=== PATIENT | male | born 1985 | race Caucasian/White ===

== ENCOUNTER → 2018-04-20 13:45 | Outpatient (CLI) | payer MEDICAID, SELFPAY ==
--- NOTE | 2018-04-20 13:47 | XR_ITS ---
XR wrist LT w scaphoid with navicular view HISTORY ITS.REASON: Left wrist pain ORDERING PHYSICIAN: MYAH Cornejo PATIENT AGE: 32 years Comparison: None FINDINGS: No fracture or dislocation. No lytic or blastic change. There is normal mineralization.. The joint spaces are well-preserved. No significant degenerative/arthritic changes. No erosive changes evident.. IMPRESSION: Negative wrist
== END ==
PROVIDERS: PCP Physician Assistant; Visit Provider Physician Assistant
DX: M25.532 Pain in left wrist (principal)
CPT/HCPCS: 73110

== ENCOUNTER → 2018-07-21 09:44 | Outpatient (REF) | payer MEDICAID, SELFPAY ==
[2018-07-21 14:43] LABS: Basophils % 0.6 % (0.1-2.0); Eosinophils # 0.2 K/mm3 (0.0-0.4); Eosinophils % 3.5 % (0.1-12.0); Hematocrit 43.8 % (42.0-52.0); Hemoglobin 14.6 g/dL (14.1-18.0); Lymphocytes # 1.4 K/mm3 (0.7-4.5); Lymphocytes % 22.6 K/mm3 (10-50); Mean Corpuscular HGB Conc 33.3 g/dL (31.8-35.4); Mean Corpuscular Volume 90.2 fl (80-94); Mean Platelet Volume 8.6 fl (7.4-10.4); Monocytes # 0.7 K/mm3 (0.1-1.0); Monocytes % 11.2 % (1.7-9.3); Neutrophils # 3.9 K/mm3 (1.8-7.8); Neutrophils % 62.1 % (37.0-80.0); Platelet Count 281 K/mm3 (142-424); Red Blood Count 4.85 M/mm3 (4.60-6.20); White Blood Count 6.3 K/mm3 (4.8-10.8)
[2018-07-21 15:20] LABS: Alanine Aminotransferase 17 U/L (12-78); Albumin/Globulin Ratio 1.3 (1.1-1.8); Alkaline Phosphatase 70 U/L (46-116); Anion Gap 11.5 mEq/L (5-15); Aspartate Amino Transferase 9 U/L (15-37); Bilirubin,Total 0.8 mg/dL (0.2-1.0); Blood Urea Nitrogen 17 mg/dL (7-18); Calcium 8.9 mg/dL (8.5-10.1); Carbon Dioxide 30 mmol/L (21.0-32.0); Chloride 103 mmol/L (98-107); Chol/HDL Ratio 1.9 (1-3.5); Cholesterol 126 mg/dL (140-200); Estimated Glomerular Filt Rate 87 ml/min (>60); GFR (African American) 105 ML/MIN (>60); Globulin 3.1 gm/dl (1.3-3.2); Glucose 89 mg/dL (74-106); HDL Cholesterol 65 mg/dL (27-67); LDL Cholesterol 54 mg/dL (0-130); Potassium 4.5 mmoL/L (3.5-5.1); Sodium 140 mmol/L (136-145); T4 (Thyroxine) 9.5 ug/dl (4.7-13.3); Thyroid Stimulating Hormone 1.74 uIU/ml (0.358-3.740); Total Protein,Serum 7.1 gm/dL (6.4-8.2); Triglycerides 36 mg/dL (30-200); VLDL Cholesterol 7 mg/dL (0-40)
== END ==
LOC: LAB 09:44
PROVIDERS: Visit Provider Physician Assistant
DX: R35.8 Other polyuria (principal)
CPT/HCPCS: 80053; 80061; 82652; 84436; 84443; 85025

== ENCOUNTER → 2018-08-12 11:43 | Outpatient (CLI) | payer MEDICAID, SELFPAY ==
[2018-08-12 12:52] LABS: Hemoglobin A1C 5.3 % (0.0-7.0)
== END ==
PROVIDERS: PCP Emergency Medicine; Visit Provider Physician Assistant
DX: R35.8 Other polyuria (principal); R35.1 Nocturia; R35.0 Frequency of micturition; Z79.899 Other long term (current) drug therapy
CPT/HCPCS: 36415; 83036

== ENCOUNTER 2018-09-29 14:04 | Outpatient (CLI) | payer MEDICAID, SELFPAY ==
[2018-09-29 15:23] VITALS: BMI 20.7
--- NOTE | 2018-09-29 15:27 | PC.NURSE ---
09/29/18-1527-pt here today for catheter insertion for urinary retention and frequency. Order noted from md to insert a f/c and anchor catheter if residual amount is greater than 300cc. Pt felt need to urinate while here and was able to void per self in the br without difficulty. Explained procedure to the patient and area prepped. Pierce catheter inserted using a standard 16 cook islander and resistance was met, unable to advance catheter all the way to the bladder. Catheter removed and another attempt to catheterize was made using a 16f coude tip. Catheter inserted with little resistance and was able to go through to the bladder. Pierce catheter attatched to drainage bag and allowed to drain at the bs. After approximately 15 min, only 50cc of urine output was noted in the drainage bag. Assisted pt to stand at the bs with the catheter still anchored and no further urine output was noted. Pierce catheter removed at this time, pt valery well. Pt allowed to discharge home at this time. Instructed pt and sister to return to the er or to the pcp office with any further issues and to f/u with urologist on . Urine specimen sent to lab for analysis.
[2018-09-29 15:31] LABS: Microscopic, Urine URINE MICROSCOPIC (MICROSCOPIC)
[2018-09-29 15:34] LABS: Appearance,Urine CLOUDY (Clear); Bilirubin,Urine Negative (Negative); Blood, Urine 3+ (Negative); Color,Urine YELLOW (Yellow); Glucose,Urine (UA) Negative (Negative); Ketones,Urine Negative (Negative); Leukocyte Esterase,Urine Negative (Negative); Nitrate,Urine Negative (Negative); Protein,Urine Negative (Negative); Urobilinogen,Urine 0.2 EU/dl (0.2)
[2018-09-29 15:59] LABS: RBC,Urine 20-50 #/hpf (0-3); Squamous Epithelial Cell,Urine Occasional #/hpf (0-5)
== END 2018-09-29 15:40 | disposition home or self-care (01) ==
LOC: INF 14:06
PROVIDERS: PCP Emergency Medicine; Visit Provider Nurse Practitioner Family
DX: R33.9 Retention of urine, unspecified (principal)
CPT/HCPCS: 81001; G0463

== ENCOUNTER → 2018-10-26 10:40 | Outpatient (CLI) | payer MEDICAID, SELFPAY ==
--- NOTE | 2018-10-26 10:45 | US_ITS ---
US Kidneys complete CLINICAL INDICATION: ITS.REASON: nocturia ORDERING PHYSICIAN: MYAH Cornejo PATIENT AGE: 33 years Comparison: None FINDINGS: The right kidney is 11 x 4 x 8 cm. No hydronephrosis mass or perinephric fluid evident. No cortical thinning. The left kidney is 10 x 4 x 4 cm. No hydronephrosis mass or perinephric fluid evident. The spleen has an unremarkable appearance. Incidental note is multiple heterogeneous liver lesions. These are not well defined. The largest lesion identified is in the right hepatic lobe anteriorly a 2.7 cm. Other lesions are less well defined. Hemangiomas or metastatic disease is a consideration. Recommend CT of the abdomen without and with contrast with hemangioma protocol for further evaluation. IMPRESSION: 1. The kidneys have an unremarkable appearance. 2. Multiple liver lesions which could be due to hemangiomas or metastasis. Suggest CT of the liver without and with contrast with with hemangioma protocol for further evaluation
--- NOTE | 2018-10-26 11:15 | US_ITS ---
US urinary bladder CLINICAL INDICATION: ITS.REASON: Enuresis ORDERING PHYSICIAN: MYAH Cornejo PATIENT AGE: 33 years Comparison: None FINDINGS: The urinary bladder has unremarkable sonographic appearance. Full bladder volume is estimated at 225 mL's. Ureteral jets are noted. No obvious mass. Post void residual is 11 mL's. IMPRESSION: Minimal post void residual urine otherwise negative bladder ultrasound
== END ==
PROVIDERS: PCP Emergency Medicine; Visit Provider Physician Assistant
DX: R35.8 Other polyuria (principal)
CPT/HCPCS: 76770; 76857

== ENCOUNTER → 2018-11-10 09:02 | Outpatient (CLI) | payer MEDICAID, SELFPAY ==
--- NOTE | 2018-11-10 09:03 | CT_ITS ---
CT abdomen pelvis wo/w con CLINICAL INDICATION: Multiple liver lesions, abnormal ultrasound ITS.REASON: multiple liver lesions seen on U/S ORDERING PHYSICIAN: MYAH Cornejo PATIENT AGE: 33 years COMPARISON: 10/26/2018 TECHNIQUE: Axial images obtained without and with contrast. Post enhanced images are obtained at 30 seconds, 60 seconds, and 7 minutes post enhanced. Sagittal and coronal reformats. All CT scans at the facility use one or more dose reduction, viz: automated exposure control, ma/kV adjustment per patient size (including targeted exams where dose is matched to indication, i.e. head), or iterative reconstruction technique. PROCEDURE: Oral Contrast: None IV Contrast: 75 mL of Isovue-370. FINDINGS: Lung bases are clear. There are innumerable varying sized hepatic lesions are hypodense to the liver. These do not demonstrate contrast enhancement that is typical for hemangioma. There is some minimal nodular enhancement on the portal phase images of several of the nodules. The largest conglomeration of lesions is in the left hepatic lobe measuring 9.4 cm transverse and 5.6 cm AP. There are some coarse calcifications noted within several of the nodular lesions. No radiopaque gallstones. The spleen, adrenal glands, pancreas, and kidneys have an unremarkable appearance. No intestinal obstruction or free air. No evidence of appendicitis, diverticulitis, pelvic mass, or abnormal fluid collection in the pelvis. There is a mild amount of retained colonic feces. No acute bony anomalies. IMPRESSION: Multiple varying sized hypoattenuating hepatic lesions some with some minimal nodular enhancement and coarse calcification. These do not have a typical appearance for hemangiomas, hepatic adenomas, or focal nodular hyperplasia. Metastatic disease is the primary consideration. Multiple abscesses are felt to be less likely. Fungal infection is a consideration.
== END ==
PROVIDERS: PCP Physician Assistant; Visit Provider Physician Assistant
DX: K76.9 Liver disease, unspecified (principal)
CPT/HCPCS: 74178; Q9967

== ENCOUNTER → 2018-12-01 15:21 | Outpatient (CLI) | payer MEDICAID, SELFPAY ==
[2018-12-01 16:10] LABS: Basophils # 0.1 K/mm3 (0-0.2); Basophils % 0.6 % (0.1-2.0); Eosinophils # 0.2 K/mm3 (0.0-0.4); Eosinophils % 1.8 % (0.1-12.0); Hematocrit 42.5 % (42.0-52.0); Hemoglobin 14.1 g/dL (14.1-18.0); Lymphocytes # 1.6 K/mm3 (0.7-4.5); Lymphocytes % 20.1 % (10-50); Mean Corpuscular HGB Conc 33.1 g/dL (31.8-35.4); Mean Corpuscular Hemoglobin 30.5 pg (27.0-31.2); Mean Corpuscular Volume 92.4 fl (80-94); Mean Platelet Volume 7.4 fl (7.4-10.4); Monocytes # 0.5 K/mm3 (0.1-1.0); Monocytes % 5.8 % (1.7-9.3); Neutrophils # 5.7 K/mm3 (1.8-7.8); Neutrophils % 71.6 % (37.0-80.0); Platelet Count 315 K/mm3 (142-424); Red Blood Count 4.61 M/mm3 (4.60-6.20); Red Cell Distribution Width 13.1 % (11.5-17.5)
[2018-12-01 16:48] LABS: Alanine Aminotransferase 17 U/L (12-78); Albumin/Globulin Ratio 1.3 (1.1-1.8); Alkaline Phosphatase 84 U/L (46-116); Anion Gap 11.2 mEq/L (5-15); Aspartate Amino Transferase 10 U/L (15-37); Bilirubin,Total 0.6 mg/dL (0.2-1.0); Blood Urea Nitrogen 14 mg/dL (7-18); Calcium 8.5 mg/dL (8.5-10.1); Carbon Dioxide 30 mmol/L (21.0-32.0); Chloride 103 mmol/L (98-107); Creatinine,Serum 0.84 mg/dL (0.70-1.30); Estimated Glomerular Filt Rate 106 ml/min (>60); GFR (African American) 128 ML/MIN (>60); Glucose 96 mg/dL (74-106); HCG,Quantitative 0 mIU/mL; Lactate Dehydrogenase 149 U/L (82-234); Potassium 4.2 mmoL/L (3.5-5.1); Sodium 140 mmol/L (136-145)
[2018-12-03 22:49] LABS: CEA 0.9 ng/mL (0.0-4.7)
== END ==
PROVIDERS: Visit Provider Internal Medicine Medical Oncology
DX: K76.89 Other specified diseases of liver
CPT/HCPCS: 36415; 80053; 82105; 82378; 83615; 84702; 85025

== ENCOUNTER → 2018-12-08 08:23 | Outpatient (CLI) | payer MEDICAID, SELFPAY ==
--- NOTE | 2018-12-08 | US_ITS ---
US biopsy guidance, US liver HISTORY: Multiple hepatic masses ITS.REASON: biopsy liver lesions ORDERING PHYSICIAN: Liz Guaman MD PATIENT AGE: 33 years COMPARISON: 11/10/2018 Prebiopsy ultrasound: Imaging performed of the liver to confirm the presence of the multiple hepatic lesions noted on the CT scan. Biopsy planning was performed. It was decided to biopsy a lesion in the left hepatic lobe being the most accessible and felt to be the safest lesion to biopsy.. TECHNIQUE: Following obtaining informed consent, using aseptic technique and local anesthesia with buffered lidocaine, fine-needle aspiration was performed of the nodule of interest using sonographic guidance. 5 passes were made into the nodule . One pass was made with a 21-gauge needle. The aspirate was bloody. Additional passes were made with a 25-gauge needle which also demonstrated blood. 2 of these passes with a 25-gauge needle was performed without aspiration into the syringe attempting to obtain cells without blood. Pathologist was on site. Core biopsy was not performed due to the hemorrhagic nature of the lesions. The patient tolerated the procedure well without evidence of immediate complications and left the ultrasound suite in stable condition. CYTOLOGY:Nondiagnostic due to predominant bloody specimen IMPRESSION: The lesion biopsied in the left hepatic lobe was very hemorrhagic. Core biopsy was not performed due to the hemorrhagic nature of the lesion. The patient does have a lesion within the mesentery is in the left lower quadrant. This may be attempted to biopsy as well. Fine-needle aspiration first is suggested with pathologist present. If the lesion does not appear to be hemorrhagic as the liver lesions were and if the lesion is readily accessible, a core biopsy may also be performed at that time.
[2018-12-08 08:42] LABS: Activated Partial Thrombo Time 31.7 seconds (23.6-34.0); INR 1.07 (0.9-1.1)
== END ==
PROVIDERS: Visit Provider Internal Medicine Medical Oncology
DX: K76.9 Liver disease, unspecified (principal)
CPT/HCPCS: 47000; 36415; 76705; 76942; 85610; 85730

== ENCOUNTER → 2020-01-25 10:51 | Outpatient (CLI) | payer MEDICAID, SELFPAY ==
--- NOTE | 2020-01-25 10:59 | XR_ITS ---
PROCEDURE: XR WRIST LT W SCAPHOID CLINICAL INDICATION: Left thumb pain Pain COMPARISON: No exams were available for comparison FINDINGS: IMPRESSION: No acute findings. Dictated by: Pelon Gayle MD 01/25/2020 16:02 Electronically signed by Pelon Gayle MD in [place] 01/25/2020 16:02
== END ==
PROVIDERS: PCP Physician Assistant; Visit Provider Physician Assistant
DX: M79.645 Pain in left finger(s) (principal)
CPT/HCPCS: 73110

== ENCOUNTER 2024-02-21 18:49 | Emergency (ER) | payer MEDICAID, SELFPAY ==
[2024-02-21 19:10] VITALS: BP 138/76; PULSE 85; RESP 17; TEMP 36.6; O2SAT 100; BMI 22.8
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
--- NOTE | 2024-02-21 19:12 | PC.NURSE ---
vitals obtained, nurses in report, family informed
--- NOTE | 2024-02-21 19:15 | ED_ITS ---
Discharge Plan Disposition Patient Disposition: Home, Self-Care Condition: Good Prescriptions Prescriptions: No Action desmopressin 0.2 mg tablet See Rx Instructions .ROUTE .COMPLEX Qty: 90 0RF Dose Instruction: TAKE 1 TO 3 TABLETS BY MOUTH ONCE DAILY AT BEDTIME FOR BLADDER Rx Instructions: TAKE 1 TO 3 TABLETS BY MOUTH ONCE DAILY AT BEDTIME FOR BLADDER patient needs to make an appt before anymore refills Referrals Follow up/Referrals: Natasha Palacios PA [Primary Care Provider] - See instructions Activity Restrictions/Add. Instructions Additional Instructions/Restrictions: You were evaluated in the emergency department today. Please follow-up with your primary care provider. Take Tylenol and ibuprofen at home as needed for pain. Clinical Impressions Clinical Impression: Muscle strain of left forearm Instructions Patient Instructions: DI for Acute Pain -- Adult, DI for Arm Pain Discharge ED Provider: Erin Kumar General Adult HPI General Chief complaint: PAIN Stated complaint: AO 02/21/24 1830 Injury left arm Time Seen by Provider: 02/21/24 19:00 History of Present Illness HPI narrative: This patient is a 38-year-old male presenting to the emergency department for evaluation with concern for left forearm injury. Patient reports that he was walking upstairs carrying a drink, when he tripped and fell. He caught himself on his left arm. He did not hit his head or lose consciousness. He complains of pain in his left forearm but no other injuries noted. He was well prior to this. No numbness, tingling, or other concerns. Related Data Previous Rx's Medication Instructions Recorded desmopressin 0.2 mg tablet See Rx Instructions .Route 02/04/24 .COMPLEX #90 tabs Allergies Allergy/AdvReac Type Severity Reaction Status Date / Time No Known Allergies Allergy Verified 04/28/21 14:09 [facility] Disclaimer: The information contained in this section may have been updated after the tarun ent was seen, as this information can be updated by other users. Medical History Allergic rhinitis Pain in wrist Social History Smoking Status: Never smoker alcohol intake: never substance use type: denies use current occupational status: disabled Travel in the last 8 weeks: None ROS Obtained: Yes All systems reviewed & no additional complaints except as documented Physical Exam General General appearance: alert and in no apparent distress Head Head exam: atraumatic and normocephalic Eye Eye exam: Present normal appearance, PERRL and EOMI ENT ENT exam: Present normal exam, normal oropharynx, mucous membranes moist and normal external ear exam Neck Neck exam: Present normal inspection, full ROM and trachea midline; Absent tenderness Chest Chest inspection: Present normal inspection and symmetric chest wall rise; Absent tenderness Respiratory Respiratory exam: Present normal lung sounds bilaterally; Absent respiratory distress, wheezes, stridor or accessory muscle use Cardiovascular Cardiovascular exam: Present regular rate and normal rhythm Abdominal Exam Abdominal exam: Present soft; Absent distention, tenderness or guarding Extremities Exam Extremities exam: Present full ROM, tenderness (Left mid forearm with no obvious deformity or bruising. Neurovascularly intact distally.) and normal capillary refill; Absent edema Back Exam Back exam: Present normal inspection and full ROM; Absent tenderness Neurological Exam Neurological exam: Present alert, oriented X3, CN II-XII intact and normal gait; Absent motor sensory deficit Psychiatric Psychiatric exam: Present normal affect and normal mood Skin Skin exam: Present warm and dry Medical Decision Making Medical Records Medical records reviewed: Yes I reviewed the patient's medical records. Mariusz Inquiry Pt receiving controlled substance: No Vital Signs: 02/21/24 19:10 02/21/24 20:47 Temperature 97.9 F 97.8 F Temperature Source Oral Oral Pulse Rate 82 Pulse Rate [Right] 85 Respiratory Rate 17 16 Blood Pressure 128/68 Blood Pressure [Right Arm] 138/76 Blood Pressure Mean [Right Arm] 96 Blood Pressure Source Automatic Cuff Blood Pressure Source [Right Arm] Automatic Cuff Blood Pressure Position Sitting 02 Sat by Pulse Oximetry 100 Oxygen Delivery Method Room Air Room Air Lab Data Lab results reviewed: Yes I reviewed the patient's lab results. Orders (Tests/Meds): ED MEDICATIONS Discontinued Medications Generic Name Dose Route Start Last Admin Trade Name Freq PRN Reason Stop Dose Admin Acetaminophen 1,000 mg 02/21/24 19:11 02/21/24 19:19 Acetaminophen 500mg Tab PO 02/21/24 19:12 1,000 mg ONCE ONE Administration Ibuprofen 800 mg 02/21/24 19:11 02/21/24 19:19 Ibuprofen 400 Mg Tablet PO 02/21/24 19:12 800 mg ONCE ONE Administration ORDERS Category Date Time Status XR elbow LT min 3V Stat Exams 02/21/24 19:11 Completed XR forearm LT 2V Stat Exams 02/21/24 19:11 Completed XR wrist LT min 3V Stat Exams 02/21/24 19:11 Completed Medical Decision Narrative: In summary, this patient is a 38-year-old male presenting to the Emergency Department for evaluation of left forearm pain after a fall. Differential diagnoses considered include but are not limited to fracture, contusion, strain/sprain, neurovascular injury. Ruling out the most morbid conditions drove assessment. Patient has no obvious deformity on exam and is neurovascularly intact. He had a low mechanism of injury fall, tripping going up stairs but not falling down the stairs. Workup included x-rays of the left wrist, forearm, and elbow. He was given oral Tylenol and ibuprofen for pain. I independently interpreted XR prior to the radiologist read and noted no acute fracture. Please see their read for final interpretation. I feel patient likely has a strain/sprain of his arm. At this time, I feel that he is appropriate for discharge. Strict return precautions were given as well as instructions for supportive management. Patient was discharged after all questions were answered. Critical Care Critical Care Time Critical Care Time: No
[2024-02-21] MEDS: ACETAMINOPHEN 500MG TAB 1000 MG PO (19:19)
[2024-02-21] MEDS: IBUPROFEN 400 MG TABLET 800 MG PO (19:19)
[2024-02-21 20:47] VITALS: BP 128/68; PULSE 82; RESP 16; TEMP 36.6; O2SAT 98
== END 2024-02-21 20:49 | disposition home or self-care (01) ==
PROVIDERS: Emergency Provider Emergency Medicine; PCP Physician Assistant
DX: S56.912A Strain of unspecified muscles, fascia and tendons at forearm level, left arm, initial encounter (principal); W10.8XXA Fall (on) (from) other stairs and steps, initial encounter
CPT/HCPCS: 73080; 73090; 73110; 99283

== ENCOUNTER 2024-12-27 13:55 | Outpatient (CLI) | payer MEDICAID, SELFPAY ==
[2024-12-27 18:13] LABS: Coronavirus 19, PCR Not Detected (NotDetected); Influenza A, PCR Not Detected (NotDetected); Influenza B, PCR Not Detected (NotDetected); Respiratory Syncytial Virus Not Detected (NotDetected)
[2024-12-28 06:57] LABS: Human Rhinovirus Detected (NotDetected)
== END 2024-12-27 23:59 | disposition home or self-care (01) ==
LOC: LAB.DROPOF 12-28 13:21
PROVIDERS: PCP Nurse Practitioner; Visit Provider Nurse Practitioner
DX: J06.9 Acute upper respiratory infection, unspecified (principal)
CPT/HCPCS: 87631

== ENCOUNTER 2025-04-19 07:44 | Outpatient (CLI) | payer MEDICAID, SELFPAY ==
[2025-04-19 18:43] LABS: Basophils # 0.1 K/mm3 (0-0.2); Basophils % 1.2 % (0.1-2.0); Eosinophils # 0.2 Kmm3 (0.0-0.4); Eosinophils % 3.7 % (0.1-12.0); Hematocrit 44.4 % (42.0-52.0); Hemoglobin 14.9 g/dL (14.1-18.0); Immature Granulocytes # 0.03 10^3uL; Immature Granulocytes % 0.6 %; Lymphocytes # 1.3 K/mm3 (0.7-4.5); Lymphocytes % 25.2 % (10-50); Mean Corpuscular HGB Conc 33.6 g/dL (31.8-35.4); Mean Corpuscular Hemoglobin 30.2 pg (27.0-31.2); Mean Corpuscular Volume 90.1 fl (80-94); Mean Platelet Volume 10.8 fl (7.4-10.4); Monocytes # 0.6 K/mm3 (0.1-1.0); Monocytes % 10.8 % (1.7-9.3); Neutrophils % 58.5 % (37.0-80.0); Nucleated Red Blood Cells # 0 10^3/uL; Nucleated Red Blood Cells % 0 %; Platelet Count 268 K/mm3 (142-424); Red Blood Count 4.93 M/mm3 (4.60-6.20); Red Cell Distribution Width 12.3 % (11.5-17.5); Red Cell Distribution Width-SD 40.3 fL; White Blood Count 5.2 K/mm3 (4.8-10.8)
[2025-04-19 19:27] LABS: Alanine Aminotransferase 16 U/L (12-78); Albumin Level 4.6 g/dl (3.5-5.0); Albumin/Globulin Ratio 1.9 (1.1-1.8); Alkaline Phosphatase 75 U/L (38-126); Anion Gap 11.2 mEq/L (5-15); Aspartate Amino Transferase 19 U/L (17-59); Bilirubin,Total 0.8 mg/dl (0.2-1.3); Blood Urea Nitrogen 15 mg/dl (9-20); Carbon Dioxide 30 mmol/L (22.0-30.0); Chloride 102 mmol/L (98-107); Chol/HDL Ratio 2.8 (1-3.5); Cholesterol 127 mg/dl (140-200); Estimated Glomerular Filt Rate 94 ml/min (>60); GFR (African American) 114 ML/MIN (>60); Globulin 2.4 g/dL (1.3-3.2); Glucose 88 mg/dl (74-100); HDL Cholesterol 45 mg/dl (40-60); Potassium 4.2 mmoL/L (3.5-5.1); Sodium 139 mmol/L (136-145); Triglycerides 70 mg/dl (30-150); VLDL Cholesterol 14 mg/dL (0-40)
[2025-04-19 19:38] LABS: Direct LDL Cholesterol 69.79 mg/dL (100-129)
== END 2025-04-19 23:59 | disposition home or self-care (01) ==
LOC: LAB.DROPOF 04-23 07:45
PROVIDERS: PCP Nurse Practitioner Family; Visit Provider Nurse Practitioner Family
DX: F39 Unspecified mood [affective] disorder (principal); R32 Unspecified urinary incontinence; F71 Moderate intellectual disabilities
CPT/HCPCS: 80053; 80061; 82306; 83036; 84443; 85025

== ENCOUNTER 2025-05-03 13:00 | Outpatient (CLI) | payer MEDICAID, SELFPAY ==
--- NOTE | 2025-05-03 13:00 | MR_ITS ---
FINAL REPORT CLINICAL HISTORY: Intellectual development disorder, TBI COMPARISON: None FINDINGS: Multiplanar MR imaging of the brain was performed without and with contrast. There is no evidence of intracranial hemorrhage or mass. No abnormal extra-axial fluid collection is seen. The ventricular size is within normal limits. There is no evidence of shift of the midline structures. The posterior fossa and brainstem have an unremarkable appearance. No area of abnormal restricted diffusion is identified. No abnormal contrast enhancement is seen. Normal major vessel vascular flow voids are noted. There is a lobular cyst versus polyp in the right maxillary sinus. IMPRESSION: No acute intracranial abnormality identified. Reviewed, Interpreted and Dictated by Lennox Ramsey MD Transcribed by Chelsie Melendez Authenticated and [facility]
[2025-05-03] MEDS: GADOTERIDOL INJ 20ML SYRINGE 13 ML IV (13:52)
[2025-05-03] MEDS: SODIUM CHLORIDE 0.9% 10ML SYR (RAD ONLY) 10 ML IV (13:52)
--- OUTSIDE RECORDS SUMMARY | 2025-05-03 13:57 | XMS_ITS | Clinical Summary ---
Author Organization [facility] Address [address] [place] [address] Phone Care Team Providers Care Electric Bath Attendant Name Role Phone Unavailable Primary Care Provider Unavailabl e Allergies No known active allergies Medications No known medications Active Problems Problem Noted Date Diagnosed Date ADHD (attention deficit hyperactivity disorder) Mild intellectual disabilities Immunizations Immunization Administration Dates Next Due Influenza Vaccine, Unspecified Formulation 12/25 Medical History Medical History Date Comments ADHD (attention deficit hyperactivity disorder) Mild intellectual disabilities Social History Tobacco Use Types Packs/Day Years Used Date Smoking Tobacco: Never Smokeless Tobacco: Never Alcohol Use Standard Drinks/Week Comments Not Asked 0 (1 standard drink = 0.6 oz pur e alcohol) Sex and Gender Information Value Date Recorded Sex Assigned at Not on file Legal Sex Male 12:49 AM EDT Gender Identity Not on file Sexual Orientation Not on file Obstetrics History Last Filed Vital Signs Vital Sign Reading Time Taken Comments Blood Pressure 120/80 07/22/2011 12:59 PM EDT Pulse 88 07/22/2011 12:59 PM EDT Temperature 36.7 C (98 F) 07/22/2011 12:59 PM EDT Respiratory Rate - - Oxygen Saturation - - Inhaled Oxygen Concentration - - Weight 59.1 kg (130 lb 6.4 oz) 07/22/2011 12:59 PM EDT Height - - Body Mass Index - - Plan of Treatment Health Maintenance Due Date Last Done Comments Annual Wellness Exam 1989 DTaP/TDaP/Td (1 - Tdap) 2005 Hepatitis B Vaccine (1 of 3 - 19+ 3-dose series) 2005 COVID-19 Vaccine ( - 2023-2 5 season) 2024 Influenza Vaccine (Season Ended) 2025 12/25/19 11 Meningococcal B Vaccine Aged Out No l onger eligible based on patient's age to complete this topic Pneumococcal Vaccine 0-49 Aged Out No longer eligible based on patient's age to complete this topic Insurance MEDICAID [id number]
--- OUTSIDE RECORDS SUMMARY | 2025-05-03 13:57 | XMS_ITS | Data Portability ---
Author Organization [facility] [place] [facility] ADMIN Address [address] [place] [id number] Care Team Providers Care Mobile Crane Operator Name Role Phone DENA JENNY Primary Care Provider [phone] Assessment No assessment recorded. Plan of Treatment Reminders Order Date Submit Date Provider Last Modified By Organization Details Last Modified Time Details Appointments OV EST 15 2025 10:45A M KEIRY MELCHOR MD Not available Not available Not available Lab None recorded. Referral None recorded. Procedures bladder scan (PROC) [address] [facility], [address], [place], [address], 01/11/2025 10:10:03 bladder scan (PROC) [address] [facility], [address], [place], [address], 12/07/2024 09:53:33 Surgeries None recorded. Imaging None recorded. Medication Orders oxybutyni n chloride ER 10 mg tablet,ex tended release 24 hr 2024 025 [id number], [address], [phone], 01/11/2025 10:10:09 oxybutyni n chloride ER 10 mg tablet,ex tended release 24 hr 2024 025 [facility][id number], [address], [phone], 12/07/2024 09:53:40 Patient TargetsNo targets recorded. Patient InstructionsNo instructions recorded. Reason for Referral None Reported. Results Created Date Observation Date Name Description Value Unit Range Abnormal Flag Note LastModifiedBy Organization Detail LastModifiedTime 12/07/1912/07/2024 bladd er scan (PROC ) Calculated Residual Urine: 6 Not Available [facility] [address], [place], [address], 12/07/2024 09:36:14 01/11/20 25 01/11/2025 bladd er scan (PROC ) Calculated Residual Urine: 19 Not Available [facility] [address], [place], [address], 01/11/2025 10:04:01 Result Notes None recorded. Problems Name Problem SNOMED Code Status Onset Date Resolution Date Notes Provider Name and Address Organization Details Recorded Time Urgent desire to urinate 23954114 Active 025 KEIRY MELCHOR MD [address] , [place], [address] , [place] - [facility] [place] 5 09:52:24 Increased frequency of urination 305209749 Active Josephine MELCHOR MD [address] , [place], [address] , [place] - [facility] [place] 5 09:52:30 Nocturia 062989049 Active Josephine MELCHOR MD [address], [place], [address] , [place] - [facility] [place] 5 09:52:34 Problem Notes None recorded. Procedures Surgical History Date Name Laterality Status Provider Name and Address Organization Details Recorded Time exploration procedure completed Ritu Horvath MA - [facility] [place] 12/07/2024 09:35:49 Imaging Results None recorded. Procedure Notes None recorded. Medical Equipment None Reported. Allergies No known drug allergies Medications Name Sig Start Date Stop Date Status Note LastModified by Organization Details LastModified Time oxybutynin chloride ER 10 mg tablet,exte nded release 24 hr Take 1 tablet every day by oral route in the evening for 90 days. 2024 active Not Available Not Available Not Avai lable desmopressi n 0.2 mg tablet TAKE 1 TO 3 TABLETS BY MOUTH DAILY AT BEDTIME FOR BLADDER. MAKE AN APPOINTME NT BEFORE ANYMORE REFILLS active Not Available Not Available No t Available lamotrigine 25 mg tablet active Not Available Not Available Not Available Fluticasone Propionate (Nasal) 50 mcg/DOSE inhaler Nichols 1 spray every day by intranasa l route. 12/07 completed Not Available Not Available Not Available propranolol 20 mg tablet TAKE 1 TABLET BY MOUTH TWICE DAILY NEEDED FOR ANXIETY active Not Available Not Available No t Available bromphenira mine-pseudo ephedrine-D M 2 mg-30 mg-10 mg/5 mL oral syrup TAKE 5 ML BY MOUTH EVERY 4 TO 6 HOURS NEEDED FOR COLD SYMPTOMS active Not Available Not Available No t Available cefdinir 300 mg capsule TAKE 1 CAPSULE BY MOUTH TWICE DAILY FOR 10 DAYS 01/11 completed Not Available Not Available Not Available naproxen 500 mg tablet Take 1 tablet twice a day by oral route. active Not Available Not Available No t Available desmopressi n 12/07 completed Not Available Not Available Not Available Lamictal active Not Available Not Avai lable Not Available loratadine 10 mg capsule Take by oral route. 12/07 completed Not Available Not Available Not Available Vitals Date Recorded Body height Body mass index (BMI) Body weight Oxygen saturation Oxygen saturation in Arterial blood by Pulse oximetry Heart rate Systolic blood pressure Diastolic blood pressure Provider Name and Address Organization Details Last Updated DateTime 5 177.8 cm 23.4 kg/m2 49932.5 6 g 99 % 99 % 80 /min 137 mm[Hg] 76 mm[Hg] Ritu Horvath MA - NT [facility] [place] 5 09:34:48 Date Recorded Body height Body mass index (BMI) Body weight Oxygen saturation Oxygen saturation in Arterial blood by Pulse oximetry Heart rate Systolic blood pressure Diastolic blood pressure Provider Name and Address Organization Details Last Updated DateTime 5 177.8 cm 24 kg/m2 31174.9 3 g 99 % 99 % 86 /min 126 mm[Hg] 76 mm[Hg] Ritu Horvath [facility] [place] 10:03:51 Social History Question Answer Notes LastModified by Organizat ion Details LastModified Time Tobacco Smoking Status Never Smoker Ritu Horvath null, [facility] [place] 12/01/2024 12:06:54 What Is Your Level Of Caffeine Consumption? Heavy Information not available 12/07/2024 Sex: Unknown Functional Status Question Answer Note LastModified by Organizat ion Details LastModified Time Do you use any illicit or recreational drugs? No Information not available 12/01/2024 What is your level of alcohol consumption? Occasional Information not available 12/01/2024 Mental Status None recorded. Family History Relationship Description Onset Age of this Age Resolved Age Notes LastModified by Organization Details LastModified Time Mother Diabetes mellitus [email or web address] Not available 12/07/2024 10:24:00 Mother Essential hypertension [email or web address] Not available 12/07/2024 10:24:10 Mother Chronic cerebrovascu lar accident [email or web address] Not available 12/07/2024 10:25:37 Sister Thyroiditis [email or web address] e [email or web address] Not available 12/07/2024 10:25:11 Medical History No medical history recorded. Past Encounters Encounter ID Performer Location Encounter Start Date Encounter Closed Date Diagnosis/Indication Diagnosis SNOMED-CT Code Diagnosis ICD10 Code Diagnosis Note [id number] KEIRY MELCHOR MD [facility] [address] [place] [address] 12/07/2024 09:12:01 12/07/2024 09:53:39 Urgent desire to urinate 62279093 R39.15 We will start anticholin ergic therapy with oxybutynin XL 10 mg each night. I reviewed the medication in depth as well as its potential side effects of dry mouth, constipati on, decreased force of stream, and urinary retention. I explained that the medication can take up to 3 weeks to become effective. Patient verbalized his understand ing. We will plan for follow up in 1 month for re-evaluat ion. Increased frequency of urination 417091418 R35.0 See above Nocturia 036019713 R35.1 see above [id number] KEIRY MELCHOR MD [facility] [address] [place] [address] 01/11/2025 09:42:47 01/11/2025 10:10:03 Increased frequency of urination 232330159 R35.0 Patient is currently doing well on oxybutynin XL 10 mg. We will continue this medication . He will follow up in 1 year or sooner if he was having issues. Nocturia 695284059 R35.1 see above Health Concerns Section Related Observation LastModified by Organization Detai ls LastModified Time None Recorded Concern Status LastModified by Organization Details LastModified Time None Recorded Advance Directives Directive None Recorded Payers Insurance Date Sequence Insurance Name Policy Number Policy Greene Covered Member ID Greene Member ID Guarantor Name 01/08/2025 1 [facility] (MEDICAID HMO) Jacoby Ortiz [id number] Jacoby Ortiz Notes Date Note Type Note Provider Name and Address Organization Details Recorded Time 12/07/2024 text/html 12/07/24 39-year-old male with 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 Outside records indicate he was currently on desmopressin. Patient is accompanied with his ezsnzha-at-pbe. They state his symptoms have been present for many years, but it has been slowly worsening over the last 5-6 years. He complains of urgency and frequency but denies incontinence episodes. He does feel that the stream can be weak at times. He specifically denies any hematuria, dysuria, or history of recurrent infections. Patient reports normal bowel function without history of chronic constipation or diarrhea. KEIRY MELCHOR MD [address], [place], [address], [facility] [place] 12/07/2024 09:54:10 01/11/2025 text/html 01/11/25 [id number]cz[age]-male returns to clinic for follow up polyuria with nocturnal enuresis. Patient started on Oxybutynin Chloride 10mg. Patient and caregiver note that they have seen significant improvement in his symptoms. He denies any weakening of his urinary stream. He does note some dry mouth, but this is not overly bothersome to him. ------ 12/07/25374703-rird-ll d male with 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 Outside records indicate he was currently on desmopressin.Dakota shepard is accompanied with his ygwufne-yf-svd. They state his symptoms have been present for many years, but it has been slowly worsening over the last 5-6 years. He complains of urgency and frequency but denies incontinence episodes. He does feel that the stream can be weak at times.He specifically denies any hematuria, dysuria, or history of recurrent infections. Patient reports normal bowel function without history of chronic constipation or diarrhea. 0 01/11/25 PVR 19 mL12/07/24 PVR 6 mL KEIRY MELCHOR MD [address], [place], [address], [facility] [place] [facility] [place] 01/11/2025 10:10:20
== END 2025-05-03 23:59 | disposition home or self-care (01) ==
LOC: RAD 13:00
PROVIDERS: PCP Nurse Practitioner Family; Visit Provider Nurse Practitioner Family
DX: S06.9XAA Unspecified intracranial injury with loss of consciousness status unknown, initial encounter (principal); X58.XXXA Exposure to other specified factors, initial encounter; F71 Moderate intellectual disabilities
CPT/HCPCS: 70553; A9576